=== PATIENT | male | born 1995 | race Caucasian/White ===

== ENCOUNTER 2020-09-05 17:56 | Emergency (ER) | payer BC, OTHER ==
[2020-09-05 18:45] LABS: Absolute Lymphocytes (CBC) 2.5 K/uL (0.7-4.9); Basophils % 0.4 % (0-1.3); Hematocrit 44.5 % (39.6-49.0); Lymphocytes % 31.7 % (15.3-44.8); RBC Red Blood Cell Count 4.75 M/uL (4.33-5.43)
[2020-09-05] MEDS ORDERED: METOPROLOL TARTRATE 5 MG/5 ML INJ IV ONE (18:46)
[2020-09-05 18:59] LABS: BUN Blood Urea Nitrogen 7 mg/dL (7-18); Bicarbonate 26 mmol/L (21-32); Glucose Level 133 mg/dL (74-106); Magnesium 2.1 mg/dL (1.8-2.4); Potassium 3.3 mmol/L (3.5-5.1); Sodium Level 140 mmol/L (136-145)
[2020-09-05] MEDS ORDERED: POTASSIUM CL SA 10 MEQ TAB PO ONE (19:27)
[2020-09-05] MEDS ORDERED: METOPROLOL TAR 25 MG TAB ONE (19:37)
--- NOTE | 2020-09-05 19:40 | ER ---
Nurse's Notes [facility] Name: Jose Zuniga Age: 25 yrs Sex: Male : 1995 Arrival Date: 09/05/2020 Time: 17:59 Bed 16 Private MD: Diagnosis: Supraventricular tachycardia Presentation: 09/05 18:21 Chief complaint: Patient states: "I am having some chest pain, and I think I am having jd3 a fast heart rate. I have a history of SVT. EMS came and did an EKG and they were going to bring me to the ER, but I wanted to drive my self.". Coronavirus screen: At this time, the client does not indicate any symptoms associated with coronavirus-19. Ebola Screen: Patient negative for fever greater than or equal to 101.5 degrees Fahrenheit, and additional compatible Ebola Virus Disease symptoms. Initial Sepsis Screen: Does the patient meet any 2 criteria? No. Patient's initial sepsis screen is negative. Does the patient have a suspected source of infection? No. Patient's initial sepsis screen is negative. Risk Assessment: Do you want to hurt yourself or someone else? Patient reports no desire to harm self or others. Onset of symptoms was September 05, 2020. 18:21 Method Of Arrival: Wheelchair jd3 18:21 Acuity: RADHIKA 3 jd3 Historical: - Allergies: 18:24 No Known Allergies; jd3 - Home Meds: 18:24 Adderall XR Oral [Active]; Metoprolol Tartrate Oral as needed [Active]; jd3 - PMHx: 18:24 ADD/ADHD; Bipolar disorder; GERD; SVT; jd3 - PSHx: 18:24 Appendectomy; jd3 - Immunization history:: Adult Immunizations up to date. - Social history:: Smoking status: Patient reports the use of cigarette tobacco products, smokes one pack cigarettes per day. Screenin:44 Abuse screen: Denies threats or abuse. Denies injuries from another. Abuse screen: ca1 Denies threats or abuse. Nutritional screening: No deficits noted. Tuberculosis screening: No symptoms or risk factors identified. Fall Risk None identified. Assessment: 18:30 General: Appears in no apparent distress. comfortable, Behavior is calm, cooperative, ca1 appropriate for age. Pain: Complains of pain in left breast Pain does not radiate. Pain currently is 8 out of 10 on a pain scale. Quality of pain is described as heavy, pressure, Pain began 1 hour ago. Is continuous. Neuro: Level of Consciousness is awake, alert, obeys commands, Oriented to person, place, time, situation. Cardiovascular: Heart tones S1 S2 present Capillary refill < 3 seconds Patient's skin is warm and dry. Rhythm is sinus tachycardia. Cardiovascular: Reports lightheadedness. Respiratory: Airway is patent Respiratory effort is even, unlabored, Respiratory pattern is regular, symmetrical, Breath sounds are clear bilaterally. GI: Abdomen is flat, non-distended, Bowel sounds present X 4 quads. Abd is soft and non tender X 4 quads. : No signs and/or symptoms were reported regarding the genitourinary system. EENT: No signs and/or symptoms were reported regarding the EENT system. Derm: Skin is intact, is healthy with good turgor, Skin is pink, warm \\T\\ dry. Musculoskeletal: Circulation, motion, and sensation intact. Capillary refill < 3 seconds. 19:30 Cardiovascular: Denies chest pain, palpitations, shortness of breath, Rhythm is regular.cr4 19:49 Reassessment: Patient states feeling better. Patient states symptoms have improved. cr4 Vital Signs: 18:24 BP 115 / 81; Pulse 123; Resp 13 S; Temp 99.0(O); Pulse Ox 98% on R/A; Weight 86.18 kg jd3 (R); Height 6 ft. 0 in. (182.88 cm) (R); Pain 4/10; 18:44 BP 130 / 84; Pulse 98; Resp 16 S; Pulse Ox 100% on R/A; ca1 19:48 BP 133 / 85; Pulse 93; Resp 16; Temp 97.8; Pulse Ox 99% ; Pain 0/10; cr4 18:24 Body Mass Index 25.77 (86.18 kg, 182.88 cm) jd3 ED Course: 17:59 Patient arrived in ED. mr 18:21 Schuyler Dallas PA is PHCP. jr8 18:21 Tay Farias MD is Attending Physician. jr8 18:22 Maryann Tijerina, JIMI is Primary Nurse. ca1 18:23 Triage completed. jd3 18:27 Arm band placed on. jd3 18:37 Initial lab(s) drawn, by me, sent to lab. Inserted saline lock: 20 gauge in left ca1 antecubital area, using aseptic technique. Blood collected. Patient maintains SpO2 saturation greater than 95% on room air. 18:44 Patient has correct armband on for positive identification. Bed in low position. Call ca1 light in reach. Side rails up X 1. surveillance system monitor on. Pulse ox on. NIBP on. Warm blanket given. 19:49 No provider procedures requiring assistance completed. IV discontinued, intact, cr4 bleeding controlled, No redness/swelling at site. Administered Medications: 18:38 Drug: Metoprolol 5 mg Route: IVP; Site: left antecubital; ca1 19:10 Follow up: Response: No adverse reaction; No adverse reaction. HR decreased ca1 19:10 Drug: Potassium Chloride 40 mEq Route: PO; ca1 19:19 Drug: Metoprolol 25 mg Route: PO; ca1 19:50 Follow up: Response: No adverse reaction cr4 Outcome: 19:38 Discharge ordered by . kortney 19:49 Discharged to home ambulatory. cr4 19:49 Condition: improved 19:49 Discharge instructions given to patient, Instructed on discharge instructions, follow up and referral plans. Demonstrated understanding of instructions, follow-up care. 19:50 Patient left the ED. cr4 Signatures: Mag Le Claudia, RN RN cr4 Schuyler Dallas PA PA jr8 Davies, Jonathon, RN RN jd3 Maryann Tijerina RN RN ca1
--- NOTE | 2020-09-05 19:40 | EDPHYS ---
Physician Documentation [facility] Name: Jose Zuniga Age: 25 yrs Sex: Male : 1995 Arrival Date: 09/05/2020 Time: 17:59 Bed 16 Private MD: ED Physician Tay Farias HPI: 09/05 19:20 This 25 yrs old Male presents to ER via Wheelchair with complaints of jr8 palpitations. 19:20 The patient presents with a history of heart racing. Context: The symptoms occur at jr8 rest. Onset: The symptoms/episode began/occurred acutely, just prior to arrival, today. Duration: The patient or guardian reports a single episode, that is still ongoing. Modifying factors: The symptoms are aggravated by light activity. Associated signs and symptoms: The patient has no apparent associated signs or symptoms. Severity of symptoms: At their worst the symptoms were moderate in the emergency department the symptoms have improved mildly. The patient has experienced similar episodes in the past, a few times. The patient has not recently seen a physician. Patient stated that he has history of SVT and takes metoprolol as needed. Started to have event today. EMS Called and was going to bring him to ED but drove himself . Historical: - Allergies: 18:24 No Known Allergies; jd3 - Home Meds: 18:24 Adderall XR Oral [Active]; Metoprolol Tartrate Oral as needed [Active]; jd3 - PMHx: 18:24 ADD/ADHD; Bipolar disorder; GERD; SVT; jd3 - PSHx: 18:24 Appendectomy; jd3 - Immunization history:: Adult Immunizations up to date. - Social history:: Smoking status: Patient reports the use of cigarette tobacco products, smokes one pack cigarettes per day. ROS: 19:20 Eyes: Negative for injury, pain, redness, and discharge, ENT: Negative for injury, jr8 pain, and discharge, Neck: Negative for injury, pain, and swelling, Abdomen/GI: Negative for abdominal pain, nausea, vomiting, diarrhea, and constipation, Back: Negative for injury and pain, MS/Extremity: Negative for injury and deformity, Skin: Negative for injury, rash, and discoloration, Neuro: Negative for headache, weakness, numbness, tingling, and seizure. 19:20 Cardiovascular: Positive for chest pain, palpitations, Negative for palpitations. Exam: 19:20 Eyes: Pupils equal round and reactive to light, extra-ocular motions intact. Lids and jr8 lashes normal. Conjunctiva and sclera are non-icteric and not injected. Cornea within normal limits. Periorbital areas with no swelling, redness, or edema. ENT: Nares patent. No nasal discharge, no septal abnormalities noted. Tympanic membranes are normal and external auditory canals are clear. Oropharynx with no redness, swelling, or masses, exudates, or evidence of obstruction, uvula midline. Mucous membranes moist. Neck: Trachea midline, no thyromegaly or masses palpated, and no cervical lymphadenopathy. Supple, full range of motion without nuchal rigidity, or vertebral point tenderness. No Meningismus. Respiratory: Lungs have equal breath sounds bilaterally, clear to auscultation and percussion. No rales, rhonchi or wheezes noted. No increased work of breathing, no retractions or nasal flaring. Abdomen/GI: Soft, non-tender, with normal bowel sounds. No distension or tympany. No guarding or rebound. No evidence of tenderness throughout. Back: No spinal tenderness. No costovertebral tenderness. Full range of motion. Skin: Warm, dry with normal turgor. Normal color with no rashes, no lesions, and no evidence of cellulitis. MS/ Extremity: Pulses equal, no cyanosis. Neurovascular intact. Full, normal range of motion. Neuro: Awake and alert, GCS 15, oriented to person, place, time, and situation. Cranial nerves II-XII grossly intact. Motor strength 5/5 in all extremities. Sensory grossly intact. Cerebellar exam normal. Normal gait. 19:20 Cardiovascular: Rate: tachycardic, Rhythm: regular, Pulses: Pulses are 2+ in right radial artery and left radial artery. Heart sounds: normal, normal S1and S2, no S3 or S4, Edema: is not appreciated, JVD: is not appreciated. 19:20 ECG was reviewed by the Attending Physician. Vital Signs: 18:24 BP 115 / 81; Pulse 123; Resp 13 S; Temp 99.0(O); Pulse Ox 98% on R/A; Weight 86.18 kg jd3 (R); Height 6 ft. 0 in. (182.88 cm) (R); Pain 4/10; 18:44 BP 130 / 84; Pulse 98; Resp 16 S; Pulse Ox 100% on R/A; ca1 19:48 BP 133 / 85; Pulse 93; Resp 16; Temp 97.8; Pulse Ox 99% ; Pain 0/10; cr4 18:24 Body Mass Index 25.77 (86.18 kg, 182.88 cm) jd3 MDM: 18:21 Patient medically screened. 8 19:20 Data reviewed: vital signs, nurses notes, lab test result(s), EKG. Data interpreted: jr8 Pulse oximetry: on room air is 100 %. Interpretation: normal. Counseling: I had a detailed discussion with the patient and/or guardian regarding: the historical points, exam findings, and any diagnostic results supporting the discharge/admit diagnosis, lab results, the need for outpatient follow up, a family practitioner, to return to the emergency department if symptoms worsen or persist or if there are any questions or concerns that arise at home. Response to treatment: the patient's symptoms have resolved after treatment. 09/05 18:25 Order name: Basic Metabolic Panel; Complete Time: 19:05 09/05 18:25 Order name: CBC with Diff; Complete Time: 19:05 09/05 18:25 Order name: Magnesium; Complete Time: 19:09/05 18:25 Order name: EKG; Complete Time: 18:26 09/05 18:25 Order name: Cardiac monitoring; Complete Time: 18:42 09/05 18:25 Order name: EKG - Nurse/Tech; Complete Time: 18:42 09/05 18:25 Order name: IV Saline Lock; Complete Time: 18:42 09/05 18:25 Order name: Labs collected and sent; Complete Time: 18:42 09/05 18:25 Order name: O2 Per Protocol; Complete Time: 18:42 09/05 18:25 Order name: O2 Sat Monitoring; Complete Time: 18:42 EC:20 Rate is 113 beats/min. Rhythm is regular, Sinus tachycardia. QRS [place] is Normal. CT jr8 interval is normal. QRS interval is normal. QT interval is normal. No Q waves. T waves are Normal. No ST changes noted. Clinical impression: Sinus tachycardia. Interpreted by me. Reviewed by me. Administered Medications: 18:38 Drug: Metoprolol 5 mg Route: IVP; Site: left antecubital; ca1 19:10 Follow up: Response: No adverse reaction; No adverse reaction. HR decreased ca1 19:10 Drug: Potassium Chloride 40 mEq Route: PO; ca1 19:19 Drug: Metoprolol 25 mg Route: PO; ca1 19:50 Follow up: Response: No adverse reaction cr4 Disposition: 09/06 07:51 Co-signature as Attending Physician, Tay Farias MD I agree with the assessment and reed plan of care. Disposition: 09/05/20 19:38 Discharged to Home. Impression: Supraventricular tachycardia. - Condition is Stable. - Discharge Instructions: Paroxysmal Supraventricular Tachycardia. - Medication Reconciliation Form, Thank You Letter, Antibiotic Education, Prescription Opioid Use form. - Follow up: Private Physician; When: 2 - 3 days; Reason: Recheck today's complaints, Continuance of care, Re-evaluation by your physician. - Problem is new. - Symptoms have improved. Signatures: Dispatcher [employer] EDTay Esparza MD MD cha Ruiz, Claudia, RN RN cr4 Schuyler Dallas PA PA jr8 Evan Chapman RN RN jd3 Maryann Tijerina RN RN ca1 Corrections: (The following items were deleted from the chart) 09/05 19:50 19:38 09/05/2020 19:38 Discharged to Home. Impression: Supraventricular tachycardia. cr4 Condition is Stable. Forms are Medication Reconciliation Form, Thank You Letter, Antibiotic Education, Prescription Opioid Use. Follow up: Private Physician; When: 2 - 3 days; Reason: Recheck today's complaints, Continuance of care, Re-evaluation by your physician. Problem is new. Symptoms have improved. jr8
[2020-09-05 20:10] VITALS: BP 133/85; TEMP 97.8; O2SAT 99
== END 2020-09-05 19:50 | disposition home or self-care (01) ==
LOC: ER 17:56
DX: I47.1 Supraventricular tachycardia (principal); F17.210 Nicotine dependence, cigarettes, uncomplicated; F90.9 Attention-deficit hyperactivity disorder, unspecified type; F31.9 Bipolar disorder, unspecified; K21.9 Gastro-esophageal reflux disease without esophagitis
CPT/HCPCS: 36415; 80048; 83735; 85025; 93005; 96374; 99285

== ENCOUNTER 2020-12-30 14:54 | Emergency (ER) | payer OTHER ==
--- NOTE | 2020-12-30 17:55 | ER ---
Nurse's Notes [facility] Name: Jose Zuniga Age: 25 yrs Sex: Male : 1995 Arrival Date: 12/30/2020 Time: 14:55 Bed External Waiting Private MD: Diagnosis: Presentation: 12/30 15:06 Chief complaint: Patient states: L CP for 3 days. States he stopped drinking his daily ll1 ETOH Tuesday, hasn't felt well since. CP, nausea, and high BP. Seen 3 hospitals in 3 days, nothing bad found. Coronavirus screen: Vaccine status: Patient reports being unvaccinated. Client denies travel out of the [place] in the last 14 days. Ebola Screen: Patient denies travel to an Ebola-affected area in the 21 days before illness onset. Initial Sepsis Screen: Does the patient meet any 2 criteria? HR > 90 bpm. No. Patient's initial sepsis screen is negative. Does the patient have a suspected source of infection? No. Patient's initial sepsis screen is negative. Risk Assessment: Do you want to hurt yourself or someone else? Patient reports no desire to harm self or others. Onset of symptoms was December 28, 2020. 15:06 Method Of Arrival: Ambulatory ll1 15:06 Acuity: RADHIKA 3 ll1 Historical: - Allergies: 15:09 No Known Drug Allergies; ll1 - PMHx: 15:09 Bipolar disorder; ADD/ADHD; GERD; SVT; ll1 - PSHx: 15:09 hand SX; Appendectomy; ll1 - Immunization history:: Client reports having NOT received the Covid vaccine. Flu vaccine status is unknown. - Social history:: Smoking status: Patient denies any tobacco usage or history of. Assessment: 17:54 Reassessment: Pt called to exam room 3 times. No answer. Unable to locate patient. ER ss registration staff member reports that patient left. Vital Signs: 15:06 BP 135 / 94; Pulse 93; Resp 18; Temp 98.5; Pulse Ox 98% ; Weight 86.18 kg; Height 6 ft. ll1 0 in. (182.88 cm); Pain 6/10; 15:06 Body Mass Index 25.77 (86.18 kg, 182.88 cm) ll1 ED Course: 14:55 Patient arrived in ED. ja2 15:08 Triage completed. ll1 15:09 Arm band placed on. ll1 15:15 EKG completed in triage. Results shown to MD. tomy Administered Medications: No medications were administered Outcome: 17:55 Eloped from waiting room, before seeing physician ss 17:55 Patient left the ED. Signatures: Janett Castano RN RN ss Lewis, Lynsay, RN RN Mariella Samuels
[2020-12-30 18:05] VITALS: BP 135/94; TEMP 98.5; O2SAT 98
--- NOTE | 2020-12-31 11:28 | EKG ---
Test Date: 2020-12-30 Test Time: 15:12:05 Pump Technician: AIDAN MEASUREMENT RESULTS: Intervals: Rate: 82 NE: 148 QRSD: 92 QT: 342 QTc: 399 [place]: P: 49 NE: 148 QRS: 111 T: 13 INTERPRETIVE STATEMENTS: Normal sinus rhythm Right axis deviation Abnormal ECG Compared to ECG 09/05/2020 18:31:30 Sinus tachycardia no longer present Electronically Signed On 12-31-20 11:26:41 CDT by Radames Johnston
== END 2020-12-30 17:55 | disposition left against medical advice (07) ==
LOC: ER 14:54
DX: Z53.21 Procedure and treatment not carried out due to patient leaving prior to being seen by health care provider (principal)
CPT/HCPCS: 93005; 99281